=== PATIENT | female | born 1980 | race Caucasian/White ===

== ENCOUNTER 2017-11-01 15:18 | Emergency (ER) | payer BC ==
[~2017-11-01] VITALS: Ht 154.9 cm; Wt 60.0 kg
[2017-11-01 15:27] VITALS: BP 130/68; PULSE 103; RESP 16; TEMP 98.3; O2SAT 100
[2017-11-01] MEDS ORDERED: PAXI10TA8 PO (17:47)
[2017-11-01] MEDS ORDERED: PRED5TAB PO (17:50)
[2017-11-01] MEDS ORDERED: TORADOL PO (17:50)
[2017-11-01] MEDS ORDERED: oxyCODONE/ACETAMINOPHEN 5 MG/325 MG TAB PO ONE (18:45)
[2017-11-01] MEDS ORDERED: ALBUTEROL SULFATE 90 MCG/ACT HFA 8 GM INHALER INH ONE (18:45)
[2017-11-01] MEDS ORDERED: NAPR500T2 PO (18:55)
--- NOTE | 2017-11-01 18:55 | PD ---
HPI Chief Complaint: Respiratory Symptoms Time Seen by Provider: 17:33 Travel History International Travel<30 days: No Contact w/Intl Traveler<30days: No Traveled to known affect area: No History of Present Illness HPI Is a 37-year-old woman presents emerged from complaining of cough cold symptoms and some chronic back pain it has been worse recently. She reports that she has a history of chronic back pain. 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 She feels like she had to lift her more. She also cough cold symptoms past couple days with some sore throat congestion and sinus pressure. No fevers. No sick contacts. No other complaints. History Past Medical History Narrative Medical Chronic back pain Anxiety Tetanus Vaccination: < 5 Years Influenza Vaccination: No LMP: 2 WEEKS AGO : 0 Para: 0 Social History Alcohol Use: Yes (RARELY ) Tobacco Use: Yes (1/2 PPD ) Allergies-Medications (Allergen,Severity, Reaction): Coded Allergies: No Known Allergies (Unverified , 11/01/17) Reported Meds & Prescriptions Reported Meds & Active Scripts Active Reported Prednisone 5 Mg Tab Unknown Dose PO DAILY PRN [Toradol ] 30 Mg PO BID PRN Paxil (Paroxetine HCl) 10 Mg Tab 20 Mg PO DAILY Review of Systems Except as stated in HPI: all other systems reviewed are Neg Physical Exam Narrative GENERAL: Well-appearing 37-year-old woman, no acute distress. SKIN: Focused skin assessment warm/dry. HEAD: Atraumatic. Normocephalic. EYES: Pupils equal and round. No scleral icterus. No injection or drainage. ENT: No nasal bleeding or discharge. Mucous membranes pink and moist. TMs normal. Throat is normal. NECK: Trachea midline. No JVD. CARDIOVASCULAR: Regular rate and rhythm. No murmur appreciated. RESPIRATORY: No accessory muscle use. Clear to auscultation. Breath sounds equal bilaterally. GASTROINTESTINAL: Abdomen soft, non-tender, nondistended. Hepatic and splenic margins not palpable. MUSCULOSKELETAL: No obvious deformities. No clubbing. No cyanosis. No edema. NEUROLOGICAL: Awake and alert. No obvious cranial nerve deficits. Motor grossly within normal limits. Normal speech. PSYCHIATRIC: Appropriate mood and affect; insight and judgment normal. Data Data Last Documented VS Vital Signs Date Time Temp Pulse Resp B/P (MAP) Pulse Ox O2 Delivery O2 Flow Rate FiO2 6/18/18 17:54 100 Nasal Cannula 2.00 11/01/17 15:27 98.3 103 16 130/68 (88) Orders Orders Oxycodone-Acetamin 5-325 Mg (Percocet (11/01/17 18:45) Albuterol Hfa Inh (Proair Hfa Inh) (11/01/17 18:45) MDM Medical Decision Making Medical Screen Exam Complete: Yes Emergency Medical Condition: Yes Differential Diagnosis Acute on chronic back pain, URI, sinusitis, pharyngitis, other Narrative Course Medical decision making 37-year-old woman presents emerged from complaining of some cough cold congestion symptoms. Looks well. No evidence of severe upper respiratory infection. She also is acute on chronic back pain. Would like a prescription for opiates. I told her we can do this for chronic back pain in the ED. Would recommend NSAIDs, inhaler as needed for bronchitis symptoms. She does smoke. No wheezing now. Outpatient follow-up. Diagnosis Primary Impression: Acute exacerbation of chronic low back pain Additional Impression: URI (upper respiratory infection) Patient Instructions: General Instructions Additional Instructions: Take naproxen as needed for back pain. Use inhaler if needed for any wheezing or shortness of breath. Take over-the- counter cough cold medicines as needed. Follow-up with your primary doctor when she established. Return to the emergency department for any new or worsening symptoms. Med/Other Pt SpecificInfo: Prescription(s) given Scripts Naproxen (Naproxen) 500 Mg Tab 500 MG PO BID, #20 TAB 0 Refills Prov: Luis Antonio Blackburn MD 11/01/17 Disposition: 01 DISCHARGE HOME Condition: Stable Luis Antonio Blackburn MD Nov 01, 2017 18:55
== END 2017-11-01 19:28 | disposition home or self-care (01) ==
LOC: NEPD 15:18
DX: G89.29 Other chronic pain (principal); M54.5 Low back pain; J06.9 Acute upper respiratory infection, unspecified; F41.9 Anxiety disorder, unspecified; F17.210 Nicotine dependence, cigarettes, uncomplicated; Z79.899 Other long term (current) drug therapy
CPT/HCPCS: 99283